=== PATIENT | female | born 1965 | race Caucasian/White ===

== ENCOUNTER 2019-03-21 21:25 | Emergency (ER) | payer OTHER ==
[2019-03-21 21:46] VITALS: BP 137/75; PULSE 88; TEMP 98.1; BMI 25.4
[2019-03-21] MEDS ORDERED: ACETAMINOPHEN 325 MG TABLET (FP) ONE (23:14)
--- NOTE | 2019-03-22 01:52 | PDOC ---
Documentation entered by Olu Quinonez SCRIBE, acting as scribe for Lola Ibarra MD. Lola Ibarra MD: This documentation has been prepared by the Cristiano casey Daniel, SCRIBE, under my direction and personally reviewed by me in its entirety. I confirm that the documentation accurately reflects all work, treatment, procedures, and medical decision making performed by me. 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 Patient also has a history of nonproductive cough and fatigue. She states that she was seen by her PMD a few days ago; she was given antitussive medication. States she has been taking ibuprofen every 4 hours [id number] since the sore throat began. She presents this evening because she is worried that she may have strep pharyngitis.. No recent travel; no recent exposure to patient or other contact with strep pharyngitis. Nonsmoker Past History - Past Medical History Allergies/Adverse Reactions: Allergies Allergy/AdvReac Type Severity Reaction Status Date / Time No Known Allergies Allergy Verified 12/19/15 16:07 Home Medications: Ambulatory Orders Loratadine [Claritin] 10 mg PO DAILY 03/21/19 Asthma: Yes Diabetes: Yes HTN: Yes - Surgical History Orthopedic Surgery: No - Immunization History Immunization Up to Date: Yes - Suicide/Smoking/Psychosocial Hx Smoking Status: No Smoking History: Never smoked Have you smoked in the past 12 months: No Number of Cigarettes Smoked Daily: 0 Cigars Per Day: 0 Hx Alcohol Use: No Drug/Substance Use Hx: No Substance Use Type: None Hx Substance Use Treatment: No Review of Systems - Review of Systems Able to Perform ROS?: Yes Comments:: 12 point review of systems is negative except for what is noted in the history of present illness *Physical Exam - Vital Signs Last Vital Signs Temp Pulse Resp BP Pulse Ox 98.1 F 88 16 137/75 98 03/21/19 21:27 03/21/19 21:27 03/21/19 21:27 03/21/19 21:27 03/21/19 21:27 - Physical Exam Comments: GENERAL: Adult female, alert and oriented 3, no acute distress HEAD: Normal with no signs of trauma. EYES: PERRLA, EOMI, sclera anicteric, conjunctiva clear. ENT: Ears normal, nares patent, oropharynx moderately erythematous, 2+ enlarged tonsils bilaterally; no exudates. Mucous membranes moist NECK: Normal range of motion, supple without JVD, or masses. Mildly enlarged anterior cervical lymph nodes bilaterally LUNGS: Breath sounds equal, clear to auscultation bilaterally. No wheezes, and no crackles. EXTREMITIES: Normal range of motion, no edema. No clubbing or cyanosis. No erythema, or tenderness. NEUROLOGICAL: Cranial nerves II through XII grossly intact. Normal speech. No focal neurological deficits. Medical Decision Making - Medical Decision Making Quick strep negative; throat culture pending. Clinical presentation consistent with acute pharyngitis, likely viral origin although throat culture is pending. No evidence for bacterial infection otherwise at this point. Patient will be discharged with advice to rest, drink plenty of fluids and alternate ibuprofen with acetaminophen. She should avoid patient contact for the next few days. She should return to the ER if she has severe symptoms but follow-up with her general medical doctor within the next 5- 7 days *DC/Admit/Observation/Transfer Diagnosis at time of Disposition: Pharyngitis Qualifiers: Pharyngitis/tonsillitis etiology: unspecified etiology Qualified Code(s): J02.9 - Acute pharyngitis, unspecified - Discharge Dispostion Disposition: HOME Condition at time of disposition: Stable - Referrals - Patient Instructions Printed Discharge Instructions: DI for Pharyngitis/Tonsillopharyngitis -- Adult Additional Instructions: Rest; drink plenty of fluids Alternate ibuprofen with acetaminophen as discussed Return to work on March 25 Follow-up with your doctor within the next 5 days Return to ER if you have severe pain/high fever/difficulty swallowing - Post Discharge Activity Forms/Work/School Notes: Back to Work
== END 2019-03-21 23:22 | disposition home or self-care (01) ==
LOC: FER 21:25
DX: J02.9 Acute pharyngitis, unspecified (principal); E11.9 Type 2 diabetes mellitus without complications; I10 Essential (primary) hypertension; J45.909 Unspecified asthma, uncomplicated
CPT/HCPCS: 87070; 87880; 99282-25